=== PATIENT | male | born 1945 | race Caucasian/White ===

== ENCOUNTER 2023-08-26 07:42 | Emergency (ER) | payer MEDICARE, SELFPAY ==
[2023-08-26 07:44] VITALS: BP 158/75
--- NOTE | 2023-08-26 08:34 | ED.GENMED ---
History of Present Illness
General
Chief Complaint: Urinary Symptoms
Source: patient and spouse
Exam Limitations: none
Time Seen by Provider: 08/26/23 08:15
Nursing documentation reviewed up to this point in time: agreed with
Travel History
Have you had any contact with someone who has COVID-19?: No
Do you have any symptoms of coronavirus? Fever > 100 degrees, chills, cough, shortness of breath, sore throat, loss of taste or smell, muscle aches, or headache?: No
History of Present Illness
History of Present Illness:
78-year-old male with a past medical history of BPH (follows with Dr. Crenshaw for urology), CLL, hypertension who presents to the emergency department accompanied by his for evaluation of hematuria. Patient was visiting friends in [place]
yesterday and unfortunately had acute urinary retention requiring a trip to the ER in [place], [place]. He says that he had a Mckenna catheter placed and 1.5 L urine that was clear drained from catheter. He was discharged to follow-up with
urology here. He says when he arrived home this morning and was getting changed to get some sleep he noticed that Mckenna catheter bag was filled with bloody urine. He says that he has been having some right flank pain as well. Came to the
emergency room for assessment. No fevers or chills. Denies abdominal pain. No nausea or vomiting. He denies any other complaints. He is on Eliquis. He does offer that they had difficulty placing catheter in [place] and had to attempt multiple
times before they finally were able to pass catheter.
Past History
Past History
ED Past Medical History: HTN and Other (BPH , CLL)
ED Past Surgical History: Appendectomy, Orthopedic (Discectomy, elbow surgery) and Tonsilectomy
Social History
Tobacco: Former smoker
Alcohol: None
Personal:
Living: with family
Employment: Retired
Review of Systems
Review of Systems
All Other Systems: ROS reviewed and negative except as documented in HPI and ROS
Constitutional: Denies fever or chills
Respiratory: Denies trouble breathing
Cardiac: Denies chest pain
ABD/GI: Denies abdominal pain, nausea or vomiting
: Reports flank pain and bleeding
Musculoskeletal: Denies neck pain
Neurological: Denies dizzy, headache, weakness or numbness
Phy Exam
Physical Exam
Physical Exam:
General: Awake, alert, oriented x3; no acute distress
Head: Normocephalic, atraumatic
Eyes: Conjunctiva normal, sclera anicteric
Throat: Airway intact, handling secretions
Neck: Trachea midline, supple without meningismus
Lungs: Clear to auscultation bilaterally, no wheezing, rales, rhonchi
Heart: Regular rate and rhythm, no murmurs, gallops, or rubs
Abd: Soft, non distended, nontender
Back: No CVA tenderness
: Mckenna catheter in place, bag filled with dark red urine no clots noted
Neuro: No gross deficits
Skin: no rash
Extremities: No edema in extremities, warm well-perfused
Scores
Heart Failure Risk
Heart Failure Risk Score: Not Applicable
Heart Score for Chest Pain Patients
STEMI patient?: Not applicable
Withdrawal Assessment of Alcohol
Withdrawal Assessment Completed?: Not applicable
Course
Orders/Labs/Results
Orders:
Orders
08/26/23 08:16
Bladder Scan- Treatment ONCE
08/26/23 08:17
Urinalysis Reflex To Culture Urgent
Date Specimen was Collected: 08/26/23
Time Specimen was Collected: 08:21
08/26/23 08:27
CT Abd/pel Without Iv Or Oral Urgent
Comment:
Reason For Exam: right flank pain
08/26/23 08:37
Complete Blood Count/With Diff Urgent
Comprehensive Metabolic Panel Urgent
08/26/23 09:48
CefTRIAXone [Rocephin] 1,000 mg IV NOW STA
Abnormal Lab Results
08/26/23
08:37
WBC 13.3 H 10^3/uL
(4.8-10.8)
RBC 4.34 L 10^6/uL
(4.70-6.10)
MCH 31.6 H pg
(27.0-31.0)
MPV 11.8 H fL
(7.4-10.4)
Abs Immat Gran (auto) 0.1 H 10^3/uL
(0-0.05)
Absolute Neuts (auto) 9.7 H 10^3/uL
(1.4-6.5)
Absolute Monos (auto) 1.7 H 10^3/uL
(0.1-0.6)
Immature Gran % 0.7 H %
(0-0.5)
Lymphocytes % 10.7 L %
(20.5-51.1)
Monocytes % 12.5 H %
(1.7-9.3)
Chloride 109 H mmol/L
(98-107)
BUN 31 H mg/dl
(9-20)
Total Bilirubin 1.8 H mg/dl
(0.2-1.3)
AST 79 H U/L
(17-59)
Total Protein 6.2 L g/dl
(6.3-8.2)
08/26/23 08:37
08/26/23 08:37
Vital Signs
Initial and Last Documented VS:
Initial Vital Signs
Temp Pulse Resp BP Pulse Ox
36.7 C 73 20 158/75 96
08/26/23 07:44 08/26/23 07:44 08/26/23 07:44 08/26/23 07:44 08/26/23 07:44
Last Documented Vital Signs
Temp Pulse Resp BP Pulse Ox
36.7 C 73 20 158/75 96
08/26/23 07:44 08/26/23 07:44 08/26/23 07:44 08/26/23 07:44 08/26/23 07:44
MDM/Problems Addressed
Differential Diagnosis Includes:
Hematuria: Bleeding from trauma of catheter placement, bleeding polyp or other bladder lesions, UTI, kidney stone
Flank pain: Hydronephrosis, UTI, nephrolithiasis, muscle strain
MDM/Problems Addressed:
78-year-old male presents for evaluation of hematuria�had urine retention requiring catheter placement in [place] yesterday and when he returned home this morning noticed blood in the catheter bag. Also some mild right flank pain. Hypertensive but
otherwise normal vitals. Exam as above. Plan to check labs including a CBC and a CMP and will send a urinalysis. Check CT of the abdomen pelvis. Provide some IV fluids. Reassess after the above.
Labs reviewed: CBC shows slight leukocytosis to 13.3 in the setting of known CLL. CMP shows normal creatinine. Marginal elevation of T. bili. CT abdomen pelvis shows enlarged prostate, and heterogeneous contents in the bladder suggesting clots.
There was a calcification in the distal left ureter with mild hydronephrosis but patient has no pain in the left flank and in fact his right flank pain is resolved. No other acute abnormalities. Performed manual irrigation of bladder with
expression of clots of blood. Mckenna catheter now draining only slightly blood-tinged urine and flowing freely. Will plan to cover with antibiotics for possibility of UTI. I think he is stable for discharge at this point in fact patient requesting
discharge. Will follow-up with his urologist as an outpatient. Spoke about return precautions all questions answered.
Chronic conditions affecting care:
BPH
Acute Exacerbation and/or Progression of Chronic Illness:
Acutely hypertensive
Acute Exacerbation and/or Progression of Chronic Illness: HTN
*Radiology
Radiology exam reviewed: radiology read reviewed
*Pulse Oximetry
Patient hypoxic: no
*Critical Care Note
Total Time (30-74mins, 75-104mins- exclusive of procedures): Not Applicable
Data Reviewed
Review of Other/Old Records Reveals: Other (Reviewed discharge summary, vitals and labs from external ER visit in [place])
Source: patient, records and spouse
ED Attending Note
-
Portions of this chart may have been created with voice recognition software.� Occasional wrong word or��sound alike� substitutions may have occurred due to the inherent limitations of voice recognition software.
Discharge Plan
Departure
Patient Disposition: Home (Routine Discharge)
Date of Disposition: 08/26/23
Time of Disposition: 10:30
Patient with high blood pressure during this ER visit?: Yes
Discharge Problem:
Hematuria, Acute UTI
Instructions: Urinary Tract Infection, Adult (DC), Blood in the Urine (Hematuria), Adult (DC)
Prescriptions:
New
cefdinir 300 mg capsule
300 mg PO BID Qty: 14 0RF
No Action
valsartan 80 MG tablet
80 mg PO DAILY
dutasteride 0.5 MG capsule
0.5 mg PO DAILY
multivitamin with folic acid [Tab-A-Hernan] 1 TABLET tablet
1 tab PO DAILY
Eliquis 2.5 mg Tablet
2.5 mg PO BID
ibrutinib 420 mg Tablet
420 mg PO DAILY
vitamin D3-vitamin K2 1 tablet tablet
1 tab PO DAILY
furosemide 40 mg Tablet
40 mg PO DAILY
Referrals:
Sky Crenshaw MD [Active] - Call in 1-3 days for appt
Rakesh Stein DO [Family Provider] -
Activity Restrictions/Additional Instructions:
Thank you for visiting the Emergency Department at [facility].
1. Please schedule a follow up appointment as directed. Call first thing tomorrow morning to make an appointment.
2. If indicated, please take your medications as instructed and indicated on discharge paperwork.
3. If any of your symptoms do not improve, or persist, or become more severe within 6-12 hours, please return to the emergency department for further care.
4. Please return to the emergency department if you develop a headache, neck pain/stiffness, fever greater than 100.4F, chest pain, shortness of breath, persistent nausea, vomiting, slurred speech, difficulty walking, numbness/tingling, weakness,
signs of infection or any other symptoms that are worrisome to you.
Please call [phone] if you have any questions.
[2023-08-26 08:55] LABS: % Basophils 0.8 % (0-2); % Eosinophils 2.6 % (0-6); % Immature Granulocytes 0.7 % (0-0.5); % Lymphocytes 10.7 % (20.5-51.1); % Monocytes 12.5 % (1.7-9.3); % Neutrophils 72.7 % (42.2-75.2); Absolute Basophils 0.1 10^3/uL (0-0.2); Absolute Eosinophils 0.4 10^3/uL (0-0.7); Absolute Immature Granulocytes 0.1 10^3/uL (0-0.05); Absolute Lymphocytes 1.4 10^3/uL (1.2-3.4); Absolute Monocytes 1.7 10^3/uL (0.1-0.6); Absolute Neutrophils 9.7 10^3/uL (1.4-6.5); Hematocrit 39.6 % (39.0-52.0); Hemoglobin 13.7 g/dL (13.0-18.0); Mean Corp Hgb Conc. 34.6 g/dL (33.0-37.0); Mean Corpuscular Hgb 31.6 pg (27.0-31.0); Mean Corpuscular Volume 91.2 fL (80.0-94.0); Mean Platelet Volume 11.8 fL (7.4-10.4); Nucleated Red Blood Cells % 0 % (-); Platelet Count 276 10^3/uL (130-400); Red Blood Cell Count 4.34 10^6/uL (4.70-6.10); Red Cell Dist. Width 13.9 % (11.5-14.5); White Blood Cell Count 13.3 10^3/uL (4.8-10.8)
[2023-08-26 09:13] LABS: ALT (SGPT) 20 U/L (0-50); AST (SGOT) 79 U/L (17-59); Alkaline Phosphatase 75 U/L (38-126); Blood Urea Nitrogen 31 mg/dl (9-20); Calcium 9.6 mg/dl (8.4-10.2); Carbon Dioxide 24 mmol/L (22-30); Chloride 109 mmol/L (98-107); Glucose 99 mg/dl (70-99); Potassium 4.4 mmol/L (3.5-5.1); Sodium 138 mmol/L (135-145); Total Bilirubin 1.8 mg/dl (0.2-1.3); Total Protein 6.2 g/dl (6.3-8.2); eGFR > 60.00
[2023-08-26] MEDS: ROCEPHIN 1000 MG IV (10:10)
[2023-08-26 10:32] VITALS: BP 147/88
== END 2023-08-26 10:35 | disposition home or self-care (01) ==
LOC: EMR 07:42
PROVIDERS: EMERGENCY PHYSICIAN Emergency Medicine; FAMILY PHYSICIAN Family Medicine
DX: N39.0 Urinary tract infection, site not specified (principal); R31.9 Hematuria, unspecified; N40.1 Benign prostatic hyperplasia with lower urinary tract symptoms; I10 Essential (primary) hypertension; C91.10 Chronic lymphocytic leukemia of B-cell type not having achieved remission; Z87.891 Personal history of nicotine dependence; Z79.01 Long term (current) use of anticoagulants; Z90.49 Acquired absence of other specified parts of digestive tract
CPT/HCPCS: 99284; 74176; 80053; 85025; 99283

== ENCOUNTER 2023-09-10 06:11 | Day surgery (SDC) | payer MEDICARE, SELFPAY ==
[2023-09-10] VITALS (12 sets, daily range): BP systolic 118–160; BP diastolic 45–82; BMI 27.5
[2023-09-10] MEDS: NORMOSOL-R 1000 IV (06:58)
[2023-09-10] MEDS: DETROL LA 4 MG PO (11:14)
[2023-09-10] MEDS: LR 1000 IV (11:25)
[2023-09-10] MEDS: DILAUDID 0.25 MG IV (11:29)
[2023-09-10] MEDS: COLACE PO (13:32)
[2023-09-10] MEDS: LASIX 40 MG PO (14:14)
[2023-09-10] MEDS: MORPHINE SULFATE 4 MG IV (14:14)
[2023-09-10] MEDS: COLACE 100 MG PO (17:39)
[2023-09-10] MEDS: TORADOL 15 MG IV ×2 (17:39→21:28)
[2023-09-10] MEDS: NON-FORMULARY ITEM 420 MG PO (18:35)
[2023-09-11] MEDS: LR 1000 IV (01:03)
[2023-09-11 03:20] VITALS: BP 145/65
[2023-09-11] MEDS: TORADOL 15 MG IV ×2 (04:24→09:22)
[2023-09-11 05:32] LABS: Hematocrit 30.8 % (39.0-52.0); Hemoglobin 10.8 g/dL (13.0-18.0); Mean Corp Hgb Conc. 35.1 g/dL (33.0-37.0); Mean Corpuscular Hgb 32.8 pg (27.0-31.0); Mean Corpuscular Volume 93.6 fL (80.0-94.0); Platelet Count 208 10^3/uL (130-400); Red Blood Cell Count 3.29 10^6/uL (4.70-6.10); Red Cell Dist. Width 13.4 % (11.5-14.5); White Blood Cell Count 16.5 10^3/uL (4.8-10.8)
[2023-09-11 06:05] LABS: ALT (SGPT) 15 U/L (0-50); AST (SGOT) 62 U/L (17-59); Albumin 2.8 g/dl (3.5-5.0); Alkaline Phosphatase 55 U/L (38-126); Blood Urea Nitrogen 33 mg/dl (9-20); Calcium 8.7 mg/dl (8.4-10.2); Carbon Dioxide 30 mmol/L (22-30); Chloride 102 mmol/L (98-107); Estimated Creatinine Clearance 63 ml/min; Glucose 123 mg/dl (70-99); Potassium 4.5 mmol/L (3.5-5.1); Sodium 137 mmol/L (135-145); Total Bilirubin 1.6 mg/dl (0.2-1.3); Total Protein 4.7 g/dl (6.3-8.2); eGFR > 60.00
[2023-09-11 07:30] VITALS: BP 128/57
[2023-09-11] MEDS: LASIX 40 MG PO ×2 (08:18→10:53)
[2023-09-11] MEDS: NON-FORMULARY ITEM 420 MG PO (08:18)
[2023-09-11] MEDS: DIOVAN 80 MG PO (08:18)
[2023-09-11] MEDS: COLACE 100 MG PO ×2 (08:21→10:53)
--- NOTE | 2023-09-11 14:39 | W.PN.URO.CBU ---
Today's Communication / Plan
-
discharge
Assessment / Plan
-
stable; diminishing hematuria
Diagnosis
-
Date of Service: September 11, 2023
-
Patient Diagnosis: s/p robotic partial prostatectomy
Post Op Day: 1
Subjective
-
feels well
Objective
-
Vital Signs
Temp Pulse Resp BP Pulse Ox
97.7 F 67 18 165/55 99
09/11/23 11:30 09/11/23 11:30 09/11/23 11:30 09/11/23 11:30 09/11/23 11:30
Intake and Output
09/10/23 09/11/23 09/12/23
06:59 06:59 06:59
Intake Total 750 / 750
Output Total 250 / 250
Balance 500 / 500
Intake:
Oral fluids 600 / 600
IV fluids (Total) 150 / 150
Normosol 150 / 150
Output:
True Urine Output from CBI 250 / 250
Laboratory Results
09/11/23 05:07
09/11/23 05:07
Physical Exam
-
General - well developed, well nourished, no acute distress
Abdomen - soft, positive bowel sounds, no distention
Genitalia - Mckenna with pink outflow
Skin - warm & dry with no rash
Neuro - AOx3, no motor deficits
Extremities - no clubbing, no cyanosis, no edema
Dressings - intact
--- NOTE | 2023-09-11 15:44 | CM ---
social media sr strategy manager reviewed patient's chart and pateint lives with spouse in a multilevel home, patient is independent with adl's and ambulation, no dme, home no needs today.
Plan; Home no needs.
== END 2023-09-11 12:48 | disposition home or self-care (01) ==
LOC: SDS 06:11
PROVIDERS: ATTENDING PHYSICIAN Specialist
DX: N40.1 Benign prostatic hyperplasia with lower urinary tract symptoms (principal); N20.1 Calculus of ureter; N13.8 Other obstructive and reflux uropathy
CPT/HCPCS: 55866; 88307; 80053; 85027

== ENCOUNTER → 2023-10-30 13:09 | Outpatient (REF) | payer MEDICARE, SELFPAY ==
[2023-10-30 12:13] LABS: % Basophils 0.5 % (0-2); % Eosinophils 1.5 % (0-6); % Immature Granulocytes 0.2 % (0-0.5); % Lymphocytes 7.4 % (20.5-51.1); % Monocytes 11.7 % (1.7-9.3); % Neutrophils 78.7 % (42.2-75.2); Absolute Basophils 0.1 10^3/uL (0-0.2); Absolute Eosinophils 0.2 10^3/uL (0-0.7); Absolute Lymphocytes 0.9 10^3/uL (1.2-3.4); Absolute Monocytes 1.4 10^3/uL (0.1-0.6); Absolute Neutrophils 9.5 10^3/uL (1.4-6.5); Hematocrit 30.8 % (39.0-52.0); Mean Corp Hgb Conc. 32.5 g/dL (33.0-37.0); Mean Corpuscular Hgb 30.1 pg (27.0-31.0); Mean Corpuscular Volume 92.8 fL (80.0-94.0); Mean Platelet Volume 10.9 fL (7.4-10.4); Platelet Count 236 10^3/uL (130-400); Red Blood Cell Count 3.32 10^6/uL (4.70-6.10); Red Cell Dist. Width 13.5 % (11.5-14.5)
== END ==
LOC: OIDL 13:09
PROVIDERS: ATTENDING PHYSICIAN Nurse Practitioner Adult Health
DX: D72.820 Lymphocytosis (symptomatic) (principal)
CPT/HCPCS: 85025

== ENCOUNTER → 2024-05-25 11:48 | Outpatient (REF) | payer MEDICARE, SELFPAY ==
[2024-05-25 12:42] LABS: % Basophils 1.7 % (0-2); % Eosinophils 2.8 % (0-6); % Immature Granulocytes 0.5 % (0-0.5); % Lymphocytes 25.2 % (20.5-51.1); % Monocytes 13.9 % (1.7-9.3); % Neutrophils 55.9 % (42.2-75.2); Absolute Basophils 0.1 10^3/uL (0-0.2); Absolute Eosinophils 0.2 10^3/uL (0-0.7); Absolute Lymphocytes 2.1 10^3/uL (1.2-3.4); Absolute Monocytes 1.2 10^3/uL (0.1-0.6); Absolute Neutrophils 4.7 10^3/uL (1.4-6.5); Hematocrit 39.1 % (39.0-52.0); Hemoglobin 13.2 g/dL (13.0-18.0); Mean Corp Hgb Conc. 33.8 g/dL (33.0-37.0); Mean Corpuscular Hgb 30.9 pg (27.0-31.0); Mean Corpuscular Volume 91.6 fL (80.0-94.0); Mean Platelet Volume 12.1 fL (7.4-10.4); Nucleated Red Blood Cells % 0 % (-); Platelet Count 225 10^3/uL (130-400); Red Blood Cell Count 4.27 10^6/uL (4.70-6.10); Red Cell Dist. Width 13.3 % (11.5-14.5); White Blood Cell Count 8.3 10^3/uL (4.8-10.8)
[2024-05-25 12:59] LABS: ALT (SGPT) 21 U/L (0-50); AST (SGOT) 76 U/L (17-59); Albumin 4.2 g/dl (3.5-5.0); Alkaline Phosphatase 63 U/L (38-126); Blood Urea Nitrogen 32 mg/dl (9-20); Calcium 9.4 mg/dl (8.4-10.2); Carbon Dioxide 25 mmol/L (22-30); Chloride 105 mmol/L (98-107); Glucose 93 mg/dl (70-99); Iron 85 ug/dl (49-181); Potassium 4.5 mmol/L (3.5-5.1); Sodium 141 mmol/L (135-145); Total Bilirubin 1.6 mg/dl (0.2-1.3); Total Protein 6.1 g/dl (6.3-8.2); eGFR > 60.00
[2024-05-25 13:00] LABS: Urine Albumin Negative (Neg - Trace); Urine Bilirubin Negative (Negative); Urine Character Slightly Cloudy (Clear); Urine Color Yellow; Urine Glucose Negative (Negative); Urine Ketone Negative (Negative); Urine Leukocyte 1+ (Negative); Urine Nitrite Positive (Negative); Urine Occult Blood 4+ (Negative); Urine Urobilinogen Negative (Neg - 1+)
[2024-05-25 13:09] LABS: Percent Saturation 30 % (20-50); Total Iron Binding Capacity 281 ug/dl (261-462)
[2024-05-25 13:38] LABS: Urine Bacteria Moderate (Negative)
[2024-05-25 13:39] LABS: Urine Red Blood Cell 26-30 /HPF (0-2); Urine White Cell 0-2 /HPF (0-5)
== END ==
LOC: OIDL 11:48
PROVIDERS: ATTENDING PHYSICIAN Internal Medicine Hematology & Oncology
DX: D72.820 Lymphocytosis (symptomatic) (principal); R63.4 Abnormal weight loss; C91.10 Chronic lymphocytic leukemia of B-cell type not having achieved remission; T50.995A Adverse effect of other drugs, medicaments and biological substances, initial encounter; D50.0 Iron deficiency anemia secondary to blood loss (chronic)
CPT/HCPCS: 80053; 81003; 81015; 82728; 83540; 83550; 85025

== ENCOUNTER → 2024-06-04 16:29 | Outpatient (REF) | payer MEDICARE, SELFPAY ==
[2024-06-04 17:27] LABS: Urine Albumin Trace (Neg - Trace); Urine Bilirubin Negative (Negative); Urine Character Clear (Clear); Urine Color Yellow; Urine Glucose Negative (Negative); Urine Ketone Negative (Negative); Urine Leukocyte Trace (Negative); Urine Nitrite Negative (Negative); Urine Occult Blood 4+ (Negative); Urine Urobilinogen Negative (Neg - 1+)
[2024-06-04 17:40] LABS: Urine Squamous Cell 0-2 /LPF (Few)
[2024-06-04 17:41] LABS: Urine Bacteria Few (Negative); Urine Red Blood Cell >100 /HPF (0-2); Urine White Cell 0-2 /HPF (0-5)
== END ==
LOC: REG 16:29
PROVIDERS: ATTENDING PHYSICIAN Nurse Practitioner Adult Health; FAMILY PHYSICIAN Family Medicine
DX: D72.820 Lymphocytosis (symptomatic) (principal); R63.4 Abnormal weight loss; C91.10 Chronic lymphocytic leukemia of B-cell type not having achieved remission; T50.995A Adverse effect of other drugs, medicaments and biological substances, initial encounter; D80.1 Nonfamilial hypogammaglobulinemia; D50.0 Iron deficiency anemia secondary to blood loss (chronic); N40.0 Benign prostatic hyperplasia without lower urinary tract symptoms
CPT/HCPCS: 81003; 81015; 87086

== ENCOUNTER → 2024-06-15 13:52 | Outpatient (REF) | payer MEDICARE, SELFPAY ==
[2024-06-15 14:42] LABS: % Basophils 1.2 % (0-2); % Eosinophils 3.3 % (0-6); % Immature Granulocytes 0.4 % (0-0.5); % Monocytes 15.2 % (1.7-9.3); % Neutrophils 65.9 % (42.2-75.2); Absolute Basophils 0.1 10^3/uL (0-0.2); Absolute Eosinophils 0.3 10^3/uL (0-0.7); Absolute Lymphocytes 1.4 10^3/uL (1.2-3.4); Absolute Monocytes 1.5 10^3/uL (0.1-0.6); Absolute Neutrophils 6.4 10^3/uL (1.4-6.5); Hemoglobin 14.3 g/dL (13.0-18.0); Mean Corp Hgb Conc. 33.3 g/dL (33.0-37.0); Mean Corpuscular Hgb 31.1 pg (27.0-31.0); Mean Corpuscular Volume 93.5 fL (80.0-94.0); Mean Platelet Volume 10.5 fL (7.4-10.4); Nucleated Red Blood Cells % 0 % (-); Platelet Count 188 10^3/uL (130-400); Red Cell Dist. Width 13.1 % (11.5-14.5); White Blood Cell Count 9.7 10^3/uL (4.8-10.8)
== END ==
LOC: REG 13:52
PROVIDERS: ATTENDING PHYSICIAN Internal Medicine Hematology & Oncology; FAMILY PHYSICIAN Family Medicine
DX: D72.820 Lymphocytosis (symptomatic) (principal); R63.4 Abnormal weight loss; C91.10 Chronic lymphocytic leukemia of B-cell type not having achieved remission; T50.995A Adverse effect of other drugs, medicaments and biological substances, initial encounter; D80.1 Nonfamilial hypogammaglobulinemia; D50.0 Iron deficiency anemia secondary to blood loss (chronic)
CPT/HCPCS: 36415; 85025

== ENCOUNTER 2024-09-23 08:58 | Day surgery (SDC) | payer MEDICARE, SELFPAY ==
[2024-09-23] VITALS (12 sets, daily range): BP systolic 142–183; BP diastolic 57–76; BMI 27.5
--- NOTE | 2024-09-23 12:23 | ITS.CL.PACE ---
Websphere Architect - Pacemaker Implant
Pacemaker Implant
Procedure Report:
PACEMAKER IMPLANT REPORT
Primary Care Provider: Dr. Rakesh Stein
Primary landing gear mechanic: Dr Renee Hoffmann
Date of Procedure: September 23, 2024
Procedure:
Implantation of single l-chamber permanent pacemaker utilizing the left bundle branch for conduction system pacing
Indication/Diagnosis:
Non-reversible symptomatic bradycardia due to third degree atrioventricular block
There is permanent atrial fibrillation
HISTORY:
Symptomatic bradycardia with no reversible cause
After informed consent was obtained, 'time out' was called and confirmed, the patient was prepped and draped in a sterile fashion. Lidocaine with epi was used for local anesthesia. Central venous access was obtained via subclavian venipuncture. An
incision was made along the left chest and a pre-pectoral pocket was formed. Using a Seldinger technique and peel-away sheaths, the pacing leads were placed under fluoroscopic guidance.
Fluoroscopy was used to determine likely anatomic site for left bundle branch pacing. The Medtronic C315 sheath was used to deliver the Medtronic 3830 Selectsecure pacing lead with the helix exposed just exposed from the sheath tip during continuous
monitoring when pacemapping the septum during gentle clockwise rotation to obtain a paced QRS morphology of a W pattern in lead V1. Once the suspected optimal site was identified, lead deployment was performed with several rapid rotations as paced
QRS morphology was intermittently monitored until a paced QRS complex in lead V1 demonstrated development of an R wave QR.
Unipolar pacing impedance dropped by approximately 200 ohms suggesting it had reached the left ventricular subendocardial.
Stable VEgm injury current is present throughout final lead position including at end of case, suggesting there was no perforation through the septum into the LV cavity.
Unipolar pacing impedance is 1200 Ohms
Unipolar pacing threshold is stable at 1 V @ 0.4 ms.
Final conduction system paced QRS complex duration is 95 ms
LVAT is 79 ms and peak V5 -> peak V1 timing is 46 ms
There is QRS transition to LVSP / selective LBBP during threshold testing
Once testing (see below) showed adequate and stable function, the leads were secured using the suture sleeves. The pocket was liberally irrigated with antibiotic solution. The leads were connected to the generator header and the leads and
generator were placed within the pocket. Fluoroscopy confirmed stable lead position. The pocket was closed in the typical fashion.
Fluoroscopy was used to guide lead placement.
IMPLANTS:
Medtronic [id number], SN: [id number], Left Pectoral
Left Bundle: Medtronic 3830 , SN:[id number], Interventricular septum at LBB
DEVICE TESTING:
Sensing: RV 12 mV
Capture: RV 0.5 V@0.4ms
Ohms: RV 1180
FINAL PROGRAMMING
Yosef Pacing: VVIR 60-130 ppm
COMPLICATIONS:
None
CONCLUSIONS:
1: Successful implant of single chamber permanent pacemaker utilizing Left Bundle Branch conduction system capture for ventricular resynchronization pacing.
RECOMMENDATIONS:
1. Post-op care (tele, CXR, IV abx)
2. In-Office wound check in 5-7 days
3. Continue outpatient evaluation regarding consideration for left atrial appendage occlusion
Copy to:
Dr. Rakesh Stein
Dr Renee Hoffmann
[2024-09-23] MEDS: PROSCAR 5 MG PO (13:16)
[2024-09-23] MEDS: DIOVAN 80 MG PO (13:17)
--- NOTE | 2024-09-23 16:16 | CM ---
CM following for DC planning needs.
Met w/ patient + spouse at bedside to complete initial assessment.
Pt. resides w/ spouse in a private home. He is functionally indep. w/ ADLs, mobility without the use of any assisted device.
Pt. has RX plan and uses [facility] in [place] for prescription needs.
Antic. DC to home, no needs.
CM to follow.
--- NOTE | 2024-09-23 17:24 | PTCARENOTE ---
Pt received post pacemaker insertion in left anterior chest wall. Dressing dry and intact, no sign of bleeding or hematoma, pt denies any discomfort. Pt OOB with assistance, steady once standing up. Pt reports falling out of bed at home 3 times
recently, fall precautions in place. Pt states understanding. Pt voiding without difficulty. Chest Xray done. Telemetry shows vent paced rhythm with underlying atrial fib at a rate of 45-60's. Telemetry reviewed with EDD Cárdenas for rates @45,
pacemaker deemed to be working well.
[2024-09-23] MEDS: ANCEF 5 IV (17:55)
--- NOTE | 2024-09-23 20:54 | PTCARENOTE ---
Patient received at change of shift out of bed to the chair. Offers no complaints at this time. Left anterior chest wall aquacell and pressure dressing in place, C/D/I. Bilateral radial pulses palpable. Vpaced on the monitor with underlying
afib/flutter. Oxygen saturation on room air 96-98%. Plan of care discussed with patient. Patient verbalized understanding that he is not to ambulate by himself and is to call for assistance. Call briones within reach. Care ongoing.
[2024-09-24] MEDS: ANCEF 5 IV (02:00)
[2024-09-24 02:08] VITALS: BP 165/93
[2024-09-24 02:21] VITALS: BP 114/91
[2024-09-24 03:07] LABS: Hematocrit 39.2 % (39.0-52.0); Hemoglobin 13.2 g/dL (13.0-18.0); Mean Corp Hgb Conc. 33.7 g/dL (33.0-37.0); Mean Corpuscular Hgb 31.4 pg (27.0-31.0); Mean Corpuscular Volume 93.1 fL (80.0-94.0); Mean Platelet Volume 11.9 fL (7.4-10.4); Platelet Count 208 10^3/uL (130-400); Red Blood Cell Count 4.21 10^6/uL (4.70-6.10); Red Cell Dist. Width 13.1 % (11.5-14.5); White Blood Cell Count 8.9 10^3/uL (4.8-10.8)
[2024-09-24 03:34] LABS: Blood Urea Nitrogen 23 mg/dl (9-20); Calcium 9.4 mg/dl (8.4-10.2); Carbon Dioxide 23 mmol/L (22-30); Chloride 104 mmol/L (98-107); Estimated Creatinine Clearance 69 ml/min; Glucose 126 mg/dl (70-99); Magnesium 2.8 mg/dl (1.6-2.3); Potassium 4.7 mmol/L (3.5-5.1); Sodium 138 mmol/L (135-145); eGFR > 60.00
--- NOTE | 2024-09-24 07:40 | W.PN.CARDCBS ---
Addendum entered and electronically signed by Preston Delgado DO 09/24/24 10:37:
I saw and examined the patient.
The Pigment Grinder's note was reviewed and I agree with the note.
Comment:
Patient status post single-chamber left bundle branch area pacing lead for nonreversible symptomatic bradycardia with third-degree AV block and permanent atrial fibrillation. Patient doing well. Patient denies any shortness of breath,
palpitations, or weakness. Mild tenderness at site. EKG AF underlying V paced 60 bpm. Telemetry V paced.
GENERAL: no acute distress
EYE: sclera anicteric
NECK: Supple, no JVD, no carotid bruit appreciated
ENT: normal nose, moist mucosal membranes
CARDIAC: Regular rate and rhythm, +S1/S2, no murmur, rubs, or gallops; L cied site dressing c/d/i, soft mild tender to palpitation
CHEST/PULMONARY: Normal effort, clear breath sounds
NEUROLOGICAL: Alert and oriented x3
SKIN: Warm and dry, no rash
PSYCH: Normal and appropriate interaction.
Primary Care Provider: Dr. Rakesh Stein
Primary enterprise sales person: Dr Renee Hoffmann
Impression:
Non-reversible symptomatic bradycardia due to third degree atrioventricular block
permanent atrial fibrillation
post single l-chamber permanent pacemaker utilizing the left bundle branch for conduction system pacing 09/23/24
HTN
CLL
BPH
SAMANTHA
h/o prostatectomy 2023
RBBB
Plan:
post device, single chamber PPM
site stable
mild inc pain, relief with Tylenol
tele Vpaced with underlying Afib
CXR no PTX
Resume Eliquis tonight
HTN continue losartan
CLL continue ibrutinib
Activity restrictions reviewed
inc check DCA 1 week
home today
Original Note:
Today's Communication / Plan
-
stable for d/c home today
Impression / Plan
-
Primary Care Provider: Dr. Rakesh Stein
Primary enterprise sales person: Dr Renee Hoffmann
Impression:
Non-reversible symptomatic bradycardia due to third degree atrioventricular block
permanent atrial fibrillation
post single l-chamber permanent pacemaker utilizing the left bundle branch for conduction system pacing 09/23/24
HTN
CLL
BPH
SAMANTHA
h/o prostatectomy 2023
RBBB
Plan:
post device, single chamber PPM
site stable
mild inc pain, relief with Tylenol
tele Vpaced with underlying Afib
CXR no PTX
Resume Eliquis tonight
HTN continue losartan
CLL continue ibrutinib
Activity restrictions reviewed
inc check DCA 1 week
home today
Progress Note - In Service Educator
Subjective
Date of Service: September 24, 2024
denies cp,sob, mild inc pain
Objective
Labs:
09/24/24 02:15
09/24/24 02:15
Labs
Hgb 13.2 g/dL (13.0-18.0) 09/24/24 02:15
Hct 39.2 % (39.0-52.0) 09/24/24 02:15
Plt Count 208 10^3/uL (130-400) 09/24/24 02:15
Sodium 138 mmol/L (135-145) 09/24/24 02:15
Potassium 4.7 mmol/L (3.5-5.1) 09/24/24 02:15
BUN 23 mg/dl (9-20) H 09/24/24 02:15
Creatinine 1.0 mg/dL (0.7-1.3) 09/24/24 02:15
Glucose 126 mg/dl (70-99) H 09/24/24 02:15
Vital Signs and I&O:
Vital Signs
Temp Pulse Resp BP Pulse Ox
97.4 F 60 18 114/91 98
09/24/24 02:00 09/24/24 06:00 09/24/24 02:00 09/24/24 02:21 09/24/24 02:00
Vital Signs
Temp Pulse Resp BP Pulse Ox
97.4 F 60 18 114/91 98
09/24/24 02:00 09/24/24 06:00 09/24/24 02:00 09/24/24 02:21 09/24/24 02:00
Intake & Output
09/22/24 09/23/24 09/24/24 09/25/24
06:59 06:59 06:59 06:59
Intake Total 720 / 720
Balance 720 / 720
Physical Exam
Physical Exam
NAD, AOX3
S1, S2, RRR
CTAB, non labored, no wheeze
SNTND bsx4
L CW dressing c/d/i, pressure dressing removed, no HT
[2024-09-24 07:57] VITALS: BP 164/72
[2024-09-24] MEDS: TYLENOL 650 MG PO (08:10)
[2024-09-24] MEDS: DIOVAN 80 MG PO (08:10)
[2024-09-24] MEDS: PROSCAR 5 MG PO (08:10)
--- NOTE | 2024-09-24 10:36 | W.DS.TRANS ---
DC Summary - Computer System Validation Specialist
-
Discharge Instructions:
Discharge Diagnosis/Procedures Pacemaker implant
Diet Low Cholesterol
Driving Restrictions No driving for 1 week
Bathing Restrictions OK to Shower
Instructions:
Stand-Alone Forms: DC Inst - Implanted Device
Changes to Home Medications: No
Discharge Medications:
DC Medications w/original date entered in [employer]
dutasteride 0.5 mg capsule 0.5 mg PO DAILY 12/18/17
multivitamin with folic acid 400 mcg tablet (Tab-A-Hernan) 1 tab PO DAILY 12/18/17
valsartan 80 mg tablet 80 mg PO DAILY 12/18/17
apixaban 2.5 mg tablet (Eliquis) 2.5 mg PO BID 10/16/22
ibrutinib 420 mg tablet 420 mg PO DAILY 10/16/22
vitamin D3-vitamin K2 1 tab PO DAILY 10/16/22
furosemide 40 mg tablet 40 mg PO DAILY 08/26/23
naproxen sodium 220 mg capsule (Aleve) 440 mg (2 x 220 mg) PO BID PRN Pain #1 cap 09/10/23
tramadol 50 mg tablet 50 mg PO Q8H PRN severe pain #10 tabs 09/10/23
Home Medication Changes
Pending Results: No
--- NOTE | 2024-09-24 11:09 | PTCARENOTE ---
Pt seen by and Aria Archer, DAY. Telemetry and IV device removed. Discharge instructions reviewed with pt and his regarding activity and driving restrictions, pain management, medications (none new), reporting cares and concerns and
follow up appt's. Excellent understanding taught back to this RN. Pt escorted out via wheelchair and discharged to home.
== END 2024-09-24 11:03 | disposition home or self-care (01) ==
LOC: CATH 08:58
PROVIDERS: Nurse Practitioner Adult Health; ATTENDING PHYSICIAN Internal Medicine Cardiovascular Disease; FAMILY PHYSICIAN Family Medicine; OTHER PHYSICIAN Internal Medicine Cardiovascular Disease; OTHER PHYSICIAN Internal Medicine Hematology & Oncology
DX: I49.5 Sick sinus syndrome (principal); I44.2 Atrioventricular block, complete; I48.21 Permanent atrial fibrillation; Z79.01 Long term (current) use of anticoagulants; Z79.899 Other long term (current) drug therapy; C91.10 Chronic lymphocytic leukemia of B-cell type not having achieved remission; G47.33 Obstructive sleep apnea (adult) (pediatric); I10 Essential (primary) hypertension; N40.0 Benign prostatic hyperplasia without lower urinary tract symptoms; Z88.1 Allergy status to other antibiotic agents; Z91.030 Bee allergy status
CPT/HCPCS: 33207; 71045; 80048; 83735; 85027; 93005; C1769; C1786; C1887; C1898; Q9967

== ENCOUNTER → 2024-11-01 15:50 | Outpatient (REF) | payer MEDICARE, SELFPAY ==
[2024-11-01 16:30] LABS: % Basophils 1.6 % (0-2); % Eosinophils 2.9 % (0-6); % Immature Granulocytes 0.7 % (0-0.5); % Lymphocytes 24.2 % (20.5-51.1); % Monocytes 13.3 % (1.7-9.3); % Neutrophils 57.3 % (42.2-75.2); Absolute Basophils 0.1 10^3/uL (0-0.2); Absolute Eosinophils 0.3 10^3/uL (0-0.7); Absolute Immature Granulocytes 0.1 10^3/uL (0-0.05); Absolute Lymphocytes 2.2 10^3/uL (1.2-3.4); Absolute Monocytes 1.2 10^3/uL (0.1-0.6); Absolute Neutrophils 5.2 10^3/uL (1.4-6.5); Hematocrit 40.8 % (39.0-52.0); Hemoglobin 13.4 g/dL (13.0-18.0); Mean Corp Hgb Conc. 32.8 g/dL (33.0-37.0); Mean Corpuscular Hgb 30.8 pg (27.0-31.0); Mean Corpuscular Volume 93.8 fL (80.0-94.0); Mean Platelet Volume 11.5 fL (7.4-10.4); Nucleated Red Blood Cells % 0 % (-); Platelet Count 219 10^3/uL (130-400); Red Blood Cell Count 4.35 10^6/uL (4.70-6.10); Red Cell Dist. Width 13.2 % (11.5-14.5)
== END ==
LOC: REG 15:50
PROVIDERS: ATTENDING PHYSICIAN Internal Medicine Hematology & Oncology; FAMILY PHYSICIAN Family Medicine
DX: D72.820 Lymphocytosis (symptomatic) (principal); R63.4 Abnormal weight loss; C91.10 Chronic lymphocytic leukemia of B-cell type not having achieved remission; T50.995A Adverse effect of other drugs, medicaments and biological substances, initial encounter; D80.1 Nonfamilial hypogammaglobulinemia; D50.0 Iron deficiency anemia secondary to blood loss (chronic); R31.9 Hematuria, unspecified
CPT/HCPCS: 36415; 85025

== ENCOUNTER → 2024-12-20 09:49 | Outpatient (REF) | payer MEDICARE, SELFPAY | LOC: RAD 09:49 | PROVIDERS: ATTENDING PHYSICIAN Internal Medicine Cardiovascular Disease; FAMILY PHYSICIAN Family Medicine | DX: R00.1 Bradycardia, unspecified (principal) | CPT/HCPCS: 75572; Q9967 ==